=== PATIENT | female | born 1955 | race Caucasian/White ===

== ENCOUNTER 2018-12-06 17:08 | Emergency (ER) | payer MEDICARE ==
[2018-12-06 17:52] LABS: Glucose,Whole Blood 494 mg/dL (75-99)
[2018-12-06] MEDS ORDERED: SODIUM CHLORIDE 0.9% 1,000 ML IV STA (18:15)
--- NOTE | 2018-12-06 18:20 | ED ---
General Adult HPI - General Chief complaint: Recheck/Abnormal Lab/Rx Stated complaint: High sugar Time Seen by Provider: 12/06/18 18:03 Source: patient Mode of arrival: ambulatory Limitations: no limitations - History of Present Illness Initial comments: Patient is 63-year-old female with history of type 2 diabetes is presenting to emergency Department with a chief complaint of high blood sugar. Patient reports she took all of her diabetic medication today and checked her blood sugar and it is at 500. Patient reports it has not been decreasing. Patient reports she normal takes 2 additional diabetic medication but has not been able to attain him due to insurance purposes, however she has been taking her insulin. Patient reports she has not been checking her blood sugar for the past 2 months. Patient reports she recently moved here and established a relationship with a new provider and restarted her 2 additional medications 3 days ago. Patient reports she did not take any more or less diabetic medication. Patient does take 20 units of insulin twice a day. Patient denies any nausea or vomiting. Patient denies any abdominal pain. - Related Data Home Medications Medication Instructions Recorded Confirmed Doxepin [SINEquan] 10 mg PO HS 12/06/18 12/06/18 Glimepiride [Amaryl] 4 mg PO AC-BRKFST 12/06/18 12/06/18 Insulin Glargine,Hum.rec.anlog 20 units SQ BID 12/06/18 12/06/18 [Toujeo Solostar] Levothyroxine Sodium [Synthroid] 50 mcg PO DAILY 12/06/18 12/06/18 Lisinopril [Zestril] 10 mg PO DAILY 12/06/18 12/06/18 Omeprazole 40 mg PO DAILY 12/06/18 12/06/18 Ranitidine HCl [Zantac] 300 mg PO HS 12/06/18 12/06/18 Allergies Allergy/AdvReac Type Severity Reaction Status Date / Time azithromycin Allergy Anaphylaxis Verified 12/06/18 18:13 erythromycin base Allergy Anaphylaxis Verified 12/06/18 18:13 insulin detemir Allergy Anaphylaxis Verified 12/06/18 18:13 [From Levemir U-100 Insulin] iodine Allergy Anaphylaxis Verified 12/06/18 18:13 meprobamate Allergy Anaphylaxis Verified 12/06/18 18:13 prednisolone Allergy Anaphylaxis Verified 12/06/18 18:13 prednisone Allergy Anaphylaxis Verified 12/06/18 18:13 shellfish derived [Shellfish] Allergy Anaphylaxis Verified 12/06/18 18:13 aspirin AdvReac CHILLS/PASSES Verified 12/06/18 18:13 OUT STEROIDS AdvReac HYPERGLYCEM Uncoded 12/06/18 18:13 IA Review of Systems ROS Statement: Those systems with pertinent positive or pertinent negative responses have been documented in the HPI. ROS Other: All systems not noted in ROS Statement are negative. Past Medical History Past Medical History: Asthma, Diabetes Mellitus, GERD/Reflux, Hypertension, Thyroid Disorder History of Any Multi-Drug Resistant Organisms: None Reported Past Surgical History: Appendectomy, Bladder Surgery, Cholecystectomy, Hernia Repair, Hysterectomy, Orthopedic Surgery, Tubal Ligation Additional Past Surgical History / Comment(s): cystoceil, rectoceilx2, cateract Past Psychological History: No Psychological Hx Reported Smoking Status: Never smoker Past Alcohol Use History: None Reported Past Drug Use History: None Reported General Exam Limitations: no limitations General appearance: alert, in no apparent distress, obese Head exam: Present: atraumatic, normocephalic, normal inspection Eye exam: Present: normal appearance, PERRL, EOMI Pupils: Present: normal accommodation ENT exam: Present: normal exam, normal oropharynx, mucous membranes moist, TM's normal bilaterally, normal external ear exam. Absent: mucous membranes dry Neck exam: Present: normal inspection, full ROM Respiratory exam: Present: normal lung sounds bilaterally Cardiovascular Exam: Present: regular rate, normal rhythm, normal heart sounds GI/Abdominal exam: Present: soft. Absent: tenderness, guarding, rebound Extremities exam: Present: normal inspection, full ROM, normal capillary refill Back exam: Present: normal inspection, full ROM. Absent: CVA tenderness (R), CVA tenderness (L) Neurological exam: Present: alert, oriented X3 Psychiatric exam: Present: normal affect, normal mood Skin exam: Present: warm, intact, normal color Course Vital Signs 12/06/18 12/06/18 12/06/18 17:33 19:52 23:00 Temperature 98 F 97.9 F Pulse Rate 85 71 93 Respiratory 18 18 19 Rate Blood Pressure 135/85 171/91 139/90 O2 Sat by Pulse 98 98 100 Oximetry Medical Decision Making - Medical Decision Making Patient is a 63-year-old female presenting to the emergency department with a chief complaint of high blood sugar. Patient has not been monitoring her blood sugar nor taking 2 of her medication for type 2 diabetes for about 2 months. Patient has been taking her long-acting insulin during this period. Patient reports she just found her glucose monitor yesterday and recently restarted her whole medication regimen 2 days ago. Patient states that her blood sugar this morning was 500 and has not been climbing down even though she is taking all her medication as directed. On initial evaluation patient doesn't have any nausea vomiting or abdominal pain. Patient does have any complaints. Patient was given 1.5 L of fluid. Patient was given a units of NovoLog. Blood glucose was reassessed and it was decreasing to the low 300s. Patient was given additional 3 units of NovoLog. On reevaluation patient had a glucose level of 280. Patient's vitals are stable. Patient will be discharged and advised to follow- up with primary care. Strict return parameters were thoroughly discussed who is understanding and agreeable. Case discussed with physician. - Lab Data Result diagrams: 12/06/18 18:36 12/06/18 18:36 Lab Results 12/06/18 12/06/18 12/06/18 Range/Units 17:32 18:36 18:36 WBC 9.0 (3.8-10.6) k/uL RBC 4.75 (3.80-5.40) m/uL Hgb 13.3 (11.4-16.0) gm/dL Hct 40.6 (34.0-46.0) % MCV 85.5 (80.0-100.0) fL MCH 28.1 (25.0-35.0) pg MCHC 32.9 (31.0-37.0) g/dL RDW 13.3 (11.5-15.5) % Plt Count 306 (150-450) k/uL Neutrophils % 54 % Lymphocytes % 35 % Monocytes % 5 % Eosinophils % 3 % Basophils % 1 % Neutrophils # 4.8 (1.3-7.7) k/uL Lymphocytes # 3.1 (1.0-4.8) k/uL Monocytes # 0.5 (0-1.0) k/uL Eosinophils # 0.3 (0-0.7) k/uL Basophils # 0.1 (0-0.2) k/uL Sodium 135 L (137-145) mmol/L Potassium 4.2 (3.5-5.1) mmol/L Chloride 99 (98-107) mmol/L Carbon Dioxide 28 (22-30) mmol/L Anion Gap 8 mmol/L BUN 13 (7-17) mg/dL Creatinine 1.01 (0.52-1.04) mg/dL Est GFR (CKD-EPI)AfAm 68 (>60 ml/min/1.73 sqM) Est GFR (CKD-EPI)NonAf 59 (>60 ml/min/1.73 sqM) Glucose 436 H (74-99) mg/dL POC Glucose (mg/dL) 494 H (75-99) mg/dL POC Glu Instrument Maker Apprentice ID Lynn Rincon Calcium 9.0 (8.4-10.2) mg/dL Phosphorus 4.1 (2.5-4.5) mg/dL Magnesium 1.7 (1.6-2.3) mg/dL Total Bilirubin 0.3 (0.2-1.3) mg/dL AST 34 (14-36) U/L ALT 28 (9-52) U/L Alkaline Phosphatase 82 (38-126) U/L Total Protein 6.7 (6.3-8.2) g/dL Albumin 3.7 (3.5-5.0) g/dL Urine Color Urine Appearance (Clear) Urine pH (5.0-8.0) Ur Specific [place] (1.001-1.035) Urine Protein (Negative) Urine Glucose (UA) (Negative) Urine Ketones (Negative) Urine Blood (Negative) Urine Nitrite (Negative) Urine Bilirubin (Negative) Urine Urobilinogen (<2.0) mg/dL Ur Leukocyte Esterase (Negative) 12/06/18 12/06/18 12/06/18 Range/Units 18:36 20:17 21:31 WBC (3.8-10.6) k/uL RBC (3.80-5.40) m/uL Hgb (11.4-16.0) gm/dL Hct (34.0-46.0) % MCV (80.0-100.0) fL MCH (25.0-35.0) pg MCHC (31.0-37.0) g/dL RDW (11.5-15.5) % Plt Count (150-450) k/uL Neutrophils % % Lymphocytes % % Monocytes % % Eosinophils % % Basophils % % Neutrophils # (1.3-7.7) k/uL Lymphocytes # (1.0-4.8) k/uL Monocytes # (0-1.0) k/uL Eosinophils # (0-0.7) k/uL Basophils # (0-0.2) k/uL Sodium (137-145) mmol/L Potassium (3.5-5.1) mmol/L Chloride (98-107) mmol/L Carbon Dioxide (22-30) mmol/L Anion Gap mmol/L BUN (7-17) mg/dL Creatinine (0.52-1.04) mg/dL Est GFR (CKD-EPI)AfAm (>60 ml/min/1.73 sqM) Est GFR (CKD-EPI)NonAf (>60 ml/min/1.73 sqM) Glucose (74-99) mg/dL POC Glucose (mg/dL) 383 H 356 H (75-99) mg/dL POC Glu Instrument Maker Apprentice ID Callewaert, Lakia Shineaert, Lakia Calcium (8.4-10.2) mg/dL Phosphorus (2.5-4.5) mg/dL Magnesium (1.6-2.3) mg/dL Total Bilirubin (0.2-1.3) mg/dL AST (14-36) U/L ALT (9-52) U/L Alkaline Phosphatase (38-126) U/L Total Protein (6.3-8.2) g/dL Albumin (3.5-5.0) g/dL Urine Color Light Yellow Urine Appearance Clear (Clear) Urine pH 5.0 (5.0-8.0) Ur Specific [place] 1.023 (1.001-1.035) Urine Protein Negative (Negative) Urine Glucose (UA) 4+ H (Negative) Urine Ketones Negative (Negative) Urine Blood Negative (Negative) Urine Nitrite Negative (Negative) Urine Bilirubin Negative (Negative) Urine Urobilinogen <2.0 (<2.0) mg/dL Ur Leukocyte Esterase Negative (Negative) 12/06/18 12/06/18 Range/Units 22:04 22:34 WBC (3.8-10.6) k/uL RBC (3.80-5.40) m/uL Hgb (11.4-16.0) gm/dL Hct (34.0-46.0) % MCV (80.0-100.0) fL MCH (25.0-35.0) pg MCHC (31.0-37.0) g/dL RDW (11.5-15.5) % Plt Count (150-450) k/uL Neutrophils % % Lymphocytes % % Monocytes % % Eosinophils % % Basophils % % Neutrophils # (1.3-7.7) k/uL Lymphocytes # (1.0-4.8) k/uL Monocytes # (0-1.0) k/uL Eosinophils # (0-0.7) k/uL Basophils # (0-0.2) k/uL Sodium (137-145) mmol/L Potassium (3.5-5.1) mmol/L Chloride (98-107) mmol/L Carbon Dioxide (22-30) mmol/L Anion Gap mmol/L BUN (7-17) mg/dL Creatinine (0.52-1.04) mg/dL Est GFR (CKD-EPI)AfAm (>60 ml/min/1.73 sqM) Est GFR (CKD-EPI)NonAf (>60 ml/min/1.73 sqM) Glucose (74-99) mg/dL POC Glucose (mg/dL) 310 H 285 H (75-99) mg/dL POC Glu Instrument Maker Apprentice Lakia Grey Ashley Calcium (8.4-10.2) mg/dL Phosphorus (2.5-4.5) mg/dL Magnesium (1.6-2.3) mg/dL Total Bilirubin (0.2-1.3) mg/dL AST (14-36) U/L ALT (9-52) U/L Alkaline Phosphatase (38-126) U/L Total Protein (6.3-8.2) g/dL Albumin (3.5-5.0) g/dL Urine Color Urine Appearance (Clear) Urine pH (5.0-8.0) Ur Specific [place] (1.001-1.035) Urine Protein (Negative) Urine Glucose (UA) (Negative) Urine Ketones (Negative) Urine Blood (Negative) Urine Nitrite (Negative) Urine Bilirubin (Negative) Urine Urobilinogen (<2.0) mg/dL Ur Leukocyte Esterase (Negative) Disposition Clinical Impression: Hyperglycemia due to type 2 diabetes mellitus Disposition: HOME SELF-CARE Condition: Stable Instructions (If sedation given, give patient instructions): Type 2 Diabetes in Adults: New Diagnosis (DC) Additional Instructions: Please continue taking prescribed medication as directed. Please follow with primary care. Please return to emergency department if symptoms worsen. Is patient prescribed a controlled substance at d/c from ED?: No Referrals: oHma Hagan MD [Primary Care Provider] - 1-2 days Time of Disposition: 22:43
[2018-12-06 18:45] LABS: Basophils # (A) 0.1 k/uL (0-0.2); Basophils % (A) 1 %; Eosinophils # (A) 0.3 k/uL (0-0.7); Eosinophils % (A) 3 %; HCT 40.6 % (34.0-46.0); HGB 13.3 gm/dL (11.4-16.0); Lymphocytes # (A) 3.1 k/uL (1.0-4.8); Lymphocytes % (A) 35 %; MCH 28.1 pg (25.0-35.0); MCHC 32.9 g/dL (31.0-37.0); MCV 85.5 fL (80.0-100.0); Mean Platelet Volume 8.5; Monocytes # (A) 0.5 k/uL (0-1.0); Monocytes % (A) 5 %; Neutrophils # (A) 4.8 k/uL (1.3-7.7); Neutrophils % (A) 54 %; Platelet Count 306 k/uL (150-450); RBC 4.75 m/uL (3.80-5.40); RDW 13.3 % (11.5-15.5)
[2018-12-06 18:46] LABS: Appearance,Urine Clear (Clear); Bilirubin,Urine Negative (Negative); Blood,Urine Negative (Negative); Color,Urine Light Yellow; Glucose,Urine (UA) 4+ (Negative); Ketones,Urine Negative (Negative); Leukocyte Esterase,Urine Negative (Negative); Nitrite,Urine Negative (Negative); Protein,Urine Negative (Negative); Specific Gravity,Urine 1.023 (1.001-1.035); Urobilinogen,Urine <2.0 mg/dL (<2.0)
[2018-12-06 19:03] LABS: Albumin 3.7 g/dL (3.5-5.0); Magnesium 1.7 mg/dL (1.6-2.3); Phosphorus 4.1 mg/dL (2.5-4.5); Potassium 4.2 mmol/L (3.5-5.1); Total Bilirubin 0.3 mg/dL (0.2-1.3); Total Protein 6.7 g/dL (6.3-8.2)
[2018-12-06 20:28] LABS: Glucose,Whole Blood 383 mg/dL (75-99)
[2018-12-06] MEDS ORDERED: INSULIN ASPART (NovoLOG) 100 UNIT/ML VIAL SQ ONE ×2 (20:32→22:07)
[2018-12-06 21:35] LABS: Glucose,Whole Blood 356 mg/dL (75-99)
[2018-12-06 22:06] LABS: Glucose,Whole Blood 310 mg/dL (75-99)
[2018-12-06 22:37] LABS: Glucose,Whole Blood 285 mg/dL (75-99)
[2018-12-06 23:04] VITALS: BP 139/90; PULSE 93; RESP 19; TEMP 97.9
== END 2018-12-06 23:04 | disposition home or self-care (01) ==
LOC: EC 17:08
DX: E11.65 Type 2 diabetes mellitus with hyperglycemia (principal); K21.9 Gastro-esophageal reflux disease without esophagitis; I10 Essential (primary) hypertension; E07.9 Disorder of thyroid, unspecified; Z88.1 Allergy status to other antibiotic agents; Z88.6 Allergy status to analgesic agent; Z88.8 Allergy status to other drugs, medicaments and biological substances; Z91.013 Allergy to seafood; Z91.048 Other nonmedicinal substance allergy status; Z79.4 Long term (current) use of insulin; Z79.890 Hormone replacement therapy; Z79.899 Other long term (current) drug therapy
CPT/HCPCS: 36415; 80053; 81003; 83735; 84100; 85025; 96360; 96361; 99284

== ENCOUNTER → 2019-01-03 | Outpatient (CLI) | payer MEDICARE ==
--- NOTE | 2019-01-03 07:56 | US ---
EXAMINATION TYPE: US venous doppler duplex LE DATE OF EXAM: 01/03/2019 7:47 AM COMPARISON: NONE CLINICAL HISTORY: R25.2 Bilateral leg cramps. SIDE PERFORMED: JESI TECHNIQUE: The lower extremity deep venous system is examined utilizing real time linear array sonog suresh with graded compression, doppler sonography and color-flow sonography. VESSELS IMAGED: External Iliac Vein (EIV) Common Femoral Vein Deep Femoral Vein Greater Saphenous Vein * Femoral Vein Popliteal Vein Small Saphenous Vein * Proximal Calf Veins (* superficial vessels) Grayscale, color doppler, spectral doppler imaging performed of the deep veins of the lower extremiti es. There is normal flow, compressibility, vascular waveforms. Right Leg: Negative for DVT Left Leg: Negative for DVT IMPRESSION: No sonographic evidence of deep venous thrombosis within the bilateral visualized lower extremities.
== END | disposition home or self-care (01) ==
LOC: RADUSWWP 07:15
PROVIDERS: ATTEND Family Medicine
DX: R25.2 Cramp and spasm (principal)
CPT/HCPCS: 93970

== ENCOUNTER 2019-03-09 13:16 | Emergency (ER) | payer MEDICARE ==
[2019-03-09 13:26] VITALS: RESP 16
[2019-03-09 13:38] LABS: Glucose,Whole Blood 51 mg/dL (75-99)
[2019-03-09] MEDS ORDERED: DEXTROSE 50% SYRINGE 50 ML IVP STA (13:39)
--- NOTE | 2019-03-09 13:42 | ED ---
General Adult HPI - General Chief complaint: Recheck/Abnormal Lab/Rx Stated complaint: Hypoglycemia Time Seen by Provider: 03/09/19 13:25 Source: patient, EMS, RN notes reviewed Mode of arrival: EMS Limitations: no limitations - History of Present Illness Initial comments: Patient is a pleasant 63-year-old female presenting to the emergency department with EMS and granddaughter for hypoglycemia. Patient has taken her insulin today however only ate a banana all day. Granddaughter states patient was acting somewhat funny, less responsive than normal however was not unresponsive. Patient found to have blood sugar at 38 by EMS. D50 was given with repeat blood sugar around 211. Patient states she has minimal nausea at this time otherwise has no complaints. No recent illness. - Related Data Home Medications Medication Instructions Recorded Confirmed Doxepin [SINEquan] 10 mg PO HS 12/06/18 12/06/18 Glimepiride [Amaryl] 4 mg PO AC-BRKFST 12/06/18 12/06/18 Insulin Glargine,Hum.rec.anlog 20 units SQ BID 12/06/18 12/06/18 [Toujeo Solostar] Levothyroxine Sodium [Synthroid] 50 mcg PO DAILY 12/06/18 12/06/18 Lisinopril [Zestril] 10 mg PO DAILY 12/06/18 12/06/18 Omeprazole 40 mg PO DAILY 12/06/18 12/06/18 Ranitidine HCl [Zantac] 300 mg PO HS 12/06/18 12/06/18 Allergies Allergy/AdvReac Type Severity Reaction Status Date / Time azithromycin Allergy Anaphylaxis Verified 03/09/19 13:26 erythromycin base Allergy Anaphylaxis Verified 03/09/19 13:26 insulin detemir Allergy Anaphylaxis Verified 03/09/19 13:26 [From Levemir U-100 Insulin] iodine Allergy Anaphylaxis Verified 03/09/19 13:26 meprobamate Allergy Anaphylaxis Verified 03/09/19 13:26 prednisolone Allergy Anaphylaxis Verified 03/09/19 13:26 prednisone Allergy Anaphylaxis Verified 03/09/19 13:26 shellfish derived [Shellfish] Allergy Anaphylaxis Verified 03/09/19 13:26 aspirin AdvReac CHILLS/PASSES Verified 03/09/19 13:26 OUT STEROIDS AdvReac HYPERGLYCEM Uncoded 12/21/19 13:26 IA Review of Systems ROS Statement: Those systems with pertinent positive or pertinent negative responses have been documented in the HPI. ROS Other: All systems not noted in ROS Statement are negative. Constitutional: Denies: fever Eyes: Denies: eye pain ENT: Denies: ear pain Respiratory: Denies: cough Cardiovascular: Denies: chest pain Endocrine: Denies: fatigue Gastrointestinal: Denies: abdominal pain Genitourinary: Denies: dysuria Musculoskeletal: Denies: back pain Skin: Denies: rash Neurological: Reports: as per HPI. Denies: headache Past Medical History Past Medical History: Asthma, Diabetes Mellitus, GERD/Reflux, Hypertension, Thyroid Disorder History of Any Multi-Drug Resistant Organisms: None Reported Past Surgical History: Appendectomy, Bladder Surgery, Cholecystectomy, Hernia Repair, Hysterectomy, Orthopedic Surgery, Tubal Ligation Additional Past Surgical History / Comment(s): cystoceil, rectoceilx2, cateract Past Psychological History: No Psychological Hx Reported Smoking Status: Never smoker Past Alcohol Use History: None Reported Past Drug Use History: None Reported General Exam Limitations: no limitations General appearance: alert, in no apparent distress Head exam: Present: normocephalic Eye exam: Present: normal appearance, PERRL, EOMI. Absent: nystagmus ENT exam: Present: normal oropharynx Neck exam: Present: normal inspection Respiratory exam: Present: normal lung sounds bilaterally Cardiovascular Exam: Present: regular rate, normal rhythm GI/Abdominal exam: Present: soft. Absent: tenderness Extremities exam: Present: normal inspection Neurological exam: Present: alert, oriented X3, CN II-XII intact. Absent: motor sensory deficit Expanded Patient oriented to: Present: person, place, time Speech: Present: fluid speech Motor strength exam: RUE: 5, LUE: 5, RLE: 5, LLE: 5 Eye Response: (4) open spontaneously Motor Response: (6) obeys commands Verbal Response: (5) oriented Psychiatric exam: Present: normal affect, normal mood Skin exam: Present: normal color Course Vital Signs 03/09/19 13:22 Temperature 97.4 F L Pulse Rate 110 H Respiratory 16 Rate Blood Pressure 136/75 O2 Sat by Pulse 98 Oximetry Medical Decision Making - Medical Decision Making Patient reevaluated and resting comfortably in bed. Patient did eat and blood sugar remained stable. Patient and family updated and both are comfortable with discharge home. - Lab Data Lab Results 03/09/19 03/09/19 03/09/19 Range/Units 13:28 13:56 14:34 POC Glucose (mg/dL) 51 L 99 120 H (75-99) mg/dL POC Glu Band Booker ID Joann Moon Randi Frazer, Randi 03/09/19 Range/Units 15:15 POC Glucose (mg/dL) 132 H (75-99) mg/dL POC Glu Band Booker Joann Rome Disposition Clinical Impression: Hypoglycemia Disposition: HOME SELF-CARE Condition: Stable Instructions (If sedation given, give patient instructions): Hypoglycemia in a Person with Diabetes (ED) Additional Instructions: Please follow-up with primary care physician in the next couple days for recheck. Do not miss meals while taking insulin. Return for confusion, decreased blood sugar, worsening symptoms or other concerns. Please check blood sugar more frequently for the next 24 hours. Is patient prescribed a controlled substance at d/c from ED?: No Referrals: Homa Hagan MD [Primary Care Provider] - 1-2 days Time of Disposition: 15:20
[2019-03-09 13:57] LABS: Glucose,Whole Blood 99 mg/dL (75-99)
[2019-03-09 14:44] LABS: Glucose,Whole Blood 120 mg/dL (75-99)
[2019-03-09 15:18] LABS: Glucose,Whole Blood 132 mg/dL (75-99)
[2019-03-09 16:11] VITALS: BP 132/64; PULSE 72; TEMP 97.2
== END 2019-03-09 16:00 | disposition home or self-care (01) ==
LOC: EC 13:16
DX: E11.649 Type 2 diabetes mellitus with hypoglycemia without coma (principal); K21.9 Gastro-esophageal reflux disease without esophagitis; I10 Essential (primary) hypertension; E07.9 Disorder of thyroid, unspecified; Z88.1 Allergy status to other antibiotic agents; Z88.6 Allergy status to analgesic agent; Z88.8 Allergy status to other drugs, medicaments and biological substances; Z91.013 Allergy to seafood; Z91.048 Other nonmedicinal substance allergy status; Z79.4 Long term (current) use of insulin; Z79.890 Hormone replacement therapy; Z79.899 Other long term (current) drug therapy
CPT/HCPCS: 36415; 96374; 99285